=== PATIENT | male | born 1980 | race Caucasian/White ===

== ENCOUNTER 2016-12-14 08:37 | Day surgery (SDC) | payer BC ==
[~2016-12-14] VITALS: Ht 188 cm; Wt 119.5 kg
[2016-12-14 09:29] LABS: HEMATOCRIT 44.1 % (38.0-50.0); MCH 28.3 PG (29.0-34.0); MCHC 34.9 G/DL (30.0-36.0); MCV 80.9 FL (86-99); MEAN PLAT.VOLUME 9.4 uM^3 (9.0-12.4); PLATELET COUNT 272 K/uL (156-360); RBC DIS.WIDTH-CV 11.6 % (11.8-14.6); RBC DIS.WIDTH-SD 33.4 % (39-53); RED BLOOD COUNT 5.45 M/uL (4.00-5.50); WHITE BLOOD COUNT 10.5 K/uL (4.1-10.2)
[2016-12-14 09:39] LABS: CHLORIDE 101 mEq/L (99-109); POTASSIUM 4.2 mEq/L (3.7-5.4); SODIUM 136 mEq/L (136-147)
[2016-12-14 09:41] LABS: GLUCOSE 374 mg/dL (70-99)
[2016-12-14 09:43] LABS: ANION GAP 12 MEQ/L (2-14); TOTAL BILIRUBIN 0.7 mg/dL (0.0-1.0)
[2016-12-14 09:45] LABS: ALKALINE PHOSPHATASE 82 IU/L (3-129); GFR ESTIMATE (CALCULATED) > 59 mL/min/
[2016-12-14 09:46] LABS: UREA NITROGEN (BUN) 21 mg/dL (9-23)
[2016-12-14 10:41] LABS: ADD MIUA? YES; BILIRUBIN NEGATIVE; BLOOD NEGATIVE; COLOR YELLOW ((YELLOW)); GLUCOSE (STRIP) >=500; KETONES 80; LEUKOCYTES NEGATIVE; NITRITE NEGATIVE; PROTEIN (STRIP) 100; SPECIFIC GRAVITY 1.044 (1.000-1.030); UROBILINOGEN 0.2 MG/DL (0.2-1.0)
[2016-12-14 10:44] LABS: BACTERIA NONE SEEN /HPF; EPITHELIAL CELLS RARE /HPF; MUCUS NONE SEEN /LPF; RED BLOOD CELLS 0-5 /HPF (0-5); UCUL ADDED? NO; WHITE BLOOD CELLS 0-5 /HPF (0-5)
[2016-12-14 13:16] LABS: POINT-OF-CARE METER ID UU14100415
[2016-12-14] MEDS ORDERED: CLARITIN10 M3 PO (13:35)
[2016-12-14] MEDS ORDERED: ADVIL,NUPRIN,M200 MG PO (14:34)
[2016-12-14 17:52] LABS: POINT-OF-CARE METER ID UU14100415
[2016-12-14 23:34] VITALS: BP 140/85
[2016-12-15 00:20] LABS: POINT-OF-CARE METER ID UU13113675
[2016-12-15] MEDS ORDERED: COLACE100 MG PO ×2 (02:26→16:08)
[2016-12-15] MEDS ORDERED: PERCOCET 5/31 TABLET PO ×2 (02:26→16:08)
[2016-12-15 03:49] VITALS: BP 144/86
[2016-12-15 06:50] LABS: POINT-OF-CARE METER ID UU14208750
[2016-12-15 07:00] VITALS: BP 128/76
[2016-12-15 11:05] VITALS: BP 158/96
[2016-12-15 11:35] LABS: Estimated Average Glucose 315 mg/dL (70-123); HEMOGLOBIN A1c (GLYCOHEMOGLOB) 12.6 % HGB (Below 5.7)
[2016-12-15] MEDS ORDERED: GLUCOPHAGE850 MG PO (14:44)
[2016-12-15] MEDS ORDERED: LISINOPRIL5 MG PO (14:44)
[2016-12-15] MEDS ORDERED: HUMALOG100 UNIT/2 SC (14:44)
[2016-12-15] MEDS ORDERED: LANTUS 3 M100 UNITS1 SC (14:44)
[2016-12-15] MEDS ORDERED: NOVOLOG PE100 UNITS/ SC (14:56)
[2016-12-15 15:15] VITALS: BP 137/71
== END 2016-12-15 17:29 | disposition home or self-care (01) ==
LOC: EME 08:37 → SDC 18:04 → EDOF 18:05 → 2EAST 18:05 → ENRESERV 18:11 → 2EAST 20:18
PROVIDERS: Nurse Practitioner Family; Surgery
PROC: 0DTJ4ZZ Resection of Appendix, Percutaneous Endoscopic Approach (ICD-10-PCS; principal; 2016-12-14)
DX: I10 Essential (primary) hypertension (principal); E11.65 Type 2 diabetes mellitus with hyperglycemia
CPT/HCPCS: 74176; 80053; 81003; 82948; 83036; 85027; 88304; 99281; 99284; G0378; J0131; J1170; J1650; J1815; J1885; J2250; J2405; J2543; J2710; J3010; J7030